=== PATIENT | male | born 1960 | race African-American/Black ===

== ENCOUNTER 2016-10-30 06:15 | Inpatient (IN) ==
--- NOTE | 2016-10-29 20:36 | Discharge Summary ---
<Bertha Byers - Last Filed: 10/29/16 20:29> Date of Encounter: 10/29/16 - Discharge Diagnosis (1) Arthritis of left hip Priority: Primary Status: Chronic (2) Hypertension Priority: Secondary Status: Chronic Qualifiers: Hypertension type: unspecified Qualified Code(s): I10 - Essential (primary ) hypertension (3) Hyperlipidemia Priority: Secondary Status: Chronic Qualifiers: Hyperlipidemia type: unspecified Qualified Code(s): E78.5 - Hyperlipidemia , unspecified (4) BMI 40.0-44.9, adult Priority: Secondary Status: Chronic - Discharge Medications Home Medications: Aspirin Enteric Coated [Aspirin EC] 325 mg PO QAM #21 tablet. 10/29/16 [Rx] OxyCODONE Immed Rel [Roxicodone 5 MG] 5 - 10 mg PO Q6HR PRN #40 tablet 10/29/16 [Rx] Simvastatin [Zocor] 20 mg PO HS 10/30/16 [History] Triamterene/HCTZ 37.5/25mg [Dyazide] 1 tab PO DAILY 10/30/16 [History] Allergies/Adverse Reactions: Allergies No Known Allergies Allergy (Unverified 10/25/16 14:43) Primary care physician: PCP NO - Patient Status Disposition: Home, Self-Care Condition: Good - Discharge Instructions Follow Up With: DADA,PCP [Primary Care Provider] - - Hospital Course Hospital course: Mr. Ruiz is a 56 year old male - Time Spent with Patient Total time spent providing and/or coordinating discharge services: - VTE Documentation of Mechanical Device: Venous foot pump, device <Cristino Chaudahry - Last Filed: 10/31/16 08:19> Date of Encounter: 10/31/16 Time of Encounter: 08:18 - Discharge Diagnosis (1) Arthritis of left hip Priority: Primary Status: Acute (2) Hypertension Priority: Secondary Status: Chronic Qualifiers: Hypertension type: unspecified Qualified Code(s): I10 - Essential (primary ) hypertension (3) Hyperlipidemia Priority: Secondary Status: Chronic Qualifiers: Hyperlipidemia type: unspecified Qualified Code(s): E78.5 - Hyperlipidemia , unspecified (4) BMI 40.0-44.9, adult Priority: Secondary Status: Chronic Primary care physician: PCP NO - Patient Status Overall status at discharge: patient is progressing back to baseline - Hospital Course Hospital course: Mr. Ruiz is a 56 year old male Status post total hip replacement The patient had an uneventful postoperative course. They received antibiotics and physical therapy and were discharged in stable condition. There will follow-up in the office in 2 weeks. Aspirin DVT prophylaxis - Time Spent with Patient Total time spent providing and/or coordinating discharge services:
[2016-10-30] MEDS ORDERED: CeFAZolin Pre 2,000 MG/100 ML 2,000 MG/100 ML BAG IVPB ONE (06:31)
--- NOTE | 2016-10-30 06:54 | History & Physical Report ---
Date of Encounter: 10/30/16 Time of Encounter: 06:54 24 Hour HP Update - Instructions Instructions: If the History and Physical is less than 30 days old and was completed prior to A.M. admission and or procedure and has NOT been updated on calendar day of procedure please complete this update prior to performing procedure. - Update Patient reports changes in Medical Condition: No Changes in examination, assessment, or condition: No Changes in Medication: No Preop tests/diagnostics Reviewed: Yes Surgery Remains Indicated: Yes Consent for Planned Operative Procedure(s) Verified: Yes - Pre-Operative Checklist Preoperative Checklist Indicated: No Prophylactic Antibiotic Ordered: Yes Is VTE Prophylaxis Indicated?: Yes
[2016-10-30] MEDS ORDERED: Lidocaine -MPF 4% 5 ML AMPUL ONE (06:58)
[2016-10-30] MEDS ORDERED: *HR* Propofol 200 MG/20 ML VIAL IVP ONE ×2 (07:00→07:56)
[2016-10-30] MEDS ORDERED: *HR* FentaNYL (PF) 100 MCG/2 ML VIAL ONE ×3 (07:00→09:40)
[2016-10-30] MEDS ORDERED: *HR* Midazolam HCl 2 MG/2 ML VIAL ONE (07:02)
[2016-10-30] MEDS ORDERED: Lidocaine -MPF 1% 2 ML VIAL ONE (07:06)
[2016-10-30] MEDS ORDERED: Dexamethasone 4 MG/ML VIAL ONE (07:08)
[2016-10-30] MEDS ORDERED: Lidocaine -MPF 2% 2 ML VIAL ONE (07:08)
[2016-10-30] MEDS ORDERED: Ondansetron 4 MG/2 ML VIAL ONE (07:08)
[2016-10-30] MEDS ORDERED: *HR* Succinylcholine 200 MG/10 ML VIAL IVP ONE (07:08)
[2016-10-30] MEDS ORDERED: *HR* Rocuronium Bromide 50 MG/5 ML VIAL ONE (07:08)
[2016-10-30] MEDS ORDERED: *HR* Phenylephrine 10 MG/ML VIAL ONE (07:08)
[2016-10-30] MEDS ORDERED: Acetaminophen IV 1,000 MG/100 ML INFUS..BTL IVPB ONE (07:09)
[2016-10-30] MEDS ORDERED: Famotidine 20 MG/2 ML VIAL IVP ONE (07:09)
[2016-10-30] MEDS ORDERED: EPHEDrine 50 MG/ML VIAL ONE (07:09)
[2016-10-30] MEDS ORDERED: Gabapentin 300 MG CAPSULE PO ONE (07:09)
--- NOTE | 2016-10-30 07:12 | Anesthesia Evaluation PreOp ---
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 10/29/16 [Rx] OxyCODONE Immed Rel [Roxicodone 5 MG] 5 - 10 mg PO Q6HR PRN #40 tablet 10/29/16 [Rx] Simvastatin [Zocor] 20 mg PO HS 10/30/16 [History] Triamterene/HCTZ 37.5/25mg [Dyazide] 1 tab PO DAILY 10/30/16 [History] Allergies No Known Allergies Allergy (Unverified 10/25/16 14:43) - Meds/Allergy Pre-op Review Medications Reviewed: Yes Allergies Reviewed: Yes Beta Blockers on Current Med List: No Anesthesia Results - Labs Laboratory Tests 10/25/16 10/25/16 14:55 14:55 Hgb 15.9 Hct 46.9 Plt Count 149 Sodium 140 Potassium 4.0 BUN 21 Creatinine 1.23 - Imaging EKG: report reviewed (SR) Anesthesia Exam O2 Sat Height 1.71 m Height 1.71 m Height 1.71 m Weight 127.913 kg Weight 127.913 kg Weight 127.913 kg O2 Sat by Pulse Oximetry 96 Vital Signs Temp Pulse Resp BP Pulse Ox 99.0 F 70 18 149/89 96 10/30/16 06:35 10/30/16 06:35 10/30/16 06:35 10/30/16 06:35 10/30/16 06:35 Height: 5'8 Weight: 282 lbs NPO (# of Hours): MN Pain Scale: 0 - HEENT Pupil (Motor): Pupils equal, EOMI Mallampati: III Teeth: Normal Oral Opening: Less than or equal to 3 - WAREHOUSE P[employer] LOC: Oriented [employer] Motor: Normal RUE, Normal LUE, Normal RLE, Normal LLE, Normal Face [employer] Sensory: Normal: RUE, LUE, RLE, LLE, Face - Cardiac Rhythm: Regular Murmur: None JVD: No Carotid Bruit: No - Pulmonary Breath Sounds: bilateral Clear Respiratory Effort: Symmetrical Anesthesia Assess/Plan ASA Score: 3 (MO HTN) Modified Osbaldo Scale for Level of Consciousness: Cooperative, oriented, and tranquil Anesthetic Plan: General Monitoring Plan: Standard Monitors Recovery Plan: PACU (Discussed GA, agrees to proceed)
[2016-10-30] MEDS ORDERED: *HR* Promethazine 25 MG/ML VIAL IVP PRN (07:36)
[2016-10-30] MEDS: Ringers Solution, Lactated 1,000 ML IVC SCH ×3 (07:50→11:20)
[2016-10-30] MEDS ORDERED: *HR* HYDROmorphone 2 MG/ML SYRINGE ONE (08:13)
[2016-10-30] MEDS ORDERED: CEFAZOLIN IVPB ONE (08:26)
[2016-10-30] MEDS ORDERED: D5 IVPB ONE (08:26)
[2016-10-30] MEDS ORDERED: WATER IVPB ONE (08:26)
[2016-10-30] MEDS ORDERED: Neostigmine Methylsulfate 3 MG/3 ML SYRINGE ONE (08:55)
--- NOTE | 2016-10-30 08:56 | Orthopedic Operative Note ---
Date of procedure: 10/30/16 Pre-op diagnosis: Left hip arthritis Post-op diagnosis: same Procedure: Procedure: Left Total Hip Replacment Estimated blood loss: 300 cc Hardware: Metal and polyethylene replacement. Biomet DM Cup: 58 G7 fin cup Femoral size 17 echo full profile lateralized stem Head: 0 head with Barbara Procedural Notes: Grade 4 arthritic changes femoral head acetabular socket. Operative procedure: The patient was brought to the operating room and placed on the operating room table. After general anesthesia was administered the patient was placed in the lateral decubitus position with the operative leg up. All pressure points were padded appropriately and the head was stabilized in the neutral position. The operative extremity was prepped and draped in the sterile surgical fashion patient received IV antibiotic prior to skin incision. A standard posterior approach is made to the operative hip, the incision was made through the skin and subcutaneous tissue hemostasis was obtained with Bovie cautery. Using careful sharp dissection the fascia was identified and incised exposing the external rotators. The external rotators were released off the greater trochanter and tagged with #2 FiberWire suture. The capsule was T'd open and the hip was brought into internal rotation. Patient noted to have grade 4 arthritic changes femoral head. The femoral neck cut was made at the appropriate level. An anterior capsulotomy was performed for the anterior retractor. Soft tissues removed from the acetabulum. Patient noted to have grade 4 arthritic changes acetabulum. Acetabulum was first reamed medially, and then reamed in 15 degrees of anteversion and 45 degrees off the horizontal. It was reamed up to the appropriate size 58 The appropriate-sized 58 acetabular cup was impacted in place in 15 degrees of anteversion and 45 degrees off the horizontal. This had good fit and fixation. The hip was brought back in to internal rotation and prepared with the air box tester followed by the canal finder followed by broaching process in 20 degrees anteversion. It was broached up to the appropriate size 17 The femoral implant was impacted in place in 20 degrees of anteversion. Trial reduction found the hip to be stable with 0 head and Barbara. The trials were removed and the real implants were impacted in place. The hip was reduced, patient had apparent equal leg lengths. The hip had excellent stability with forward flexion to 90 degrees adduction of 30 degrees and internal rotation of 60 degrees. The hip had no shuck. The hips after 2 minutes with a Betadine saline solution. It was irrigated out with 2 L of pulse irrigation. The PA close the hip. Fascia was closed with a running #2 PDS suture. The deep tissue was irrigated and closed deep with #1 PDS suture superficially with 0 PDS suture and skin was closed with Dermabond and skin alva. The patient was placed in a sterile dressing and abduction pillow. The patient was extubated and transferred to the recovery room in stable condition. Anesthesia: ROMEL Surgeon: Cristino Chaudhary Fish Checker: Bertha Byers Condition: stable Disposition: PACU
[2016-10-30] MEDS: *HR* HYDROmorphone (PF) 1 MG/ML SYRINGE IVP PRN ×5 (09:52→10:22)
[2016-10-30] MEDS ORDERED: Ketorolac 30 MG/ML VIAL IVP ONE (10:10)
[2016-10-30 10:36] LABS: Hematocrit 40.7 % (37.5-50.1)
--- NOTE | 2016-10-30 10:40 | Anesthesia Evaluation Post Op ---
Date of Encounter: 10/30/16 Time of Encounter: 10:39 - Vital Signs Vital Signs: vss - Lungs Lungs: Clear Ascult./Percussion - Airway Airway: Obstructed - Cardiovascular Baseline Rhythm - Mental Status Mental Status: Asleep with brisk response to light stimulation - Pain Pain Scale used: [place] (Faces) (no distress noted) - Nausea Vomiting Nausea Vomiting: Not Present - Hydration Hydration: Ice chips - Discharge PostOp Status: Transfer Patient to floor
[2016-10-30 10:41] LABS: Hemoglobin 13.6 g/dL (12.9-16.9)
[2016-10-30] MEDS ORDERED: Ondansetron 4 MG/2 ML VIAL IVP PRN (10:47)
[2016-10-30] MEDS ORDERED: MOM Conc 10 ML UD.LIQ PO PRN (10:47)
[2016-10-30] MEDS ORDERED: Naloxone 0.4 MG/ML INJ IVP PRN (10:47)
[2016-10-30] MEDS ORDERED: *HR* OxyCODONE Immed Rel 5 MG TABLET PO PRN (10:47)
[2016-10-30] MEDS ORDERED: ceFAZolin 3,000 MG in D5% in Water 100 ML IVPB SCH (10:47)
[2016-10-30] MEDS ORDERED: Sennosides 8.6 MG TABLET PO PRN (10:47)
[2016-10-30] MEDS ORDERED: Temazepam 15 MG CAPSULE PO PRN (10:47)
[2016-10-30] MEDS: Ascorbic Acid 500 MG TABLET PO SCH ×2 (11:15→16:04)
[2016-10-30] MEDS: Multivit/Ca/Min/Fe/FA 1 TAB TABLET PO SCH (11:15)
[2016-10-30] MEDS: *HR* OxyCODONE Immed Rel 5 MG TABLET PO PRN ×3 (11:19→23:56)
[2016-10-30] MEDS: ceFAZolin 3,000 MG in D5% in Water 100 ML IVPB SCH ×2 (15:18→23:59)
[2016-10-30] MEDS: *HR* Enoxaparin 30 MG/0.3 ML SYRINGE SQ SCH (17:35)
[2016-10-30] MEDS ORDERED: *HR* Enoxaparin 30 MG/0.3 ML SYRINGE SQ SCH (18:00)
[2016-10-31] MEDS: *HR* HYDROmorphone (PF) 1 MG/ML SYRINGE IVP PRN ×2 (02:48→05:24)
[2016-10-31] MEDS: Ringers Solution, Lactated 1,000 ML IVC SCH (05:20)
[2016-10-31] MEDS: *HR* Enoxaparin 30 MG/0.3 ML SYRINGE SQ SCH (05:20)
[2016-10-31 05:58] LABS: Hematocrit 33.6 % (37.5-50.1)
[2016-10-31 06:05] LABS: Hemoglobin 11.4 g/dL (12.9-16.9)
[2016-10-31 06:47] LABS: BUN/Creatinine Ratio 14 (6-26); Blood Urea Nitrogen 15 mg/dL (8-26); Calcium 8.1 mg/dL (8.6-10.8); Carbon Dioxide 26 mEq/L (19-29); Chloride 99 mEq/L (98-109); Glucose 150 mg/dL (70-99); Osmolality,Calculated 278 (280-300); Potassium 3.5 mEq/L (3.5-4.5); Sodium 132 mEq/L (136-145); eGFR For African Americans > 60 (> 60); eGFR For Non-African Americans > 60 (> 60)
--- NOTE | 2016-10-31 08:20 | Orthopedics Progress Note ---
Date of Encounter: 10/31/16 Time of Encounter: 08:19 - Assessment and Plan (1) Arthritis of left hip Current Visit: Yes Status: Acute (2) Hypertension Current Visit: Yes Status: Chronic Qualifiers: Hypertension type: unspecified Qualified Code(s): I10 - Essential (primary ) hypertension (3) Hyperlipidemia Current Visit: Yes Status: Chronic Qualifiers: Hyperlipidemia type: unspecified Qualified Code(s): E78.5 - Hyperlipidemia , unspecified (4) BMI 40.0-44.9, adult Current Visit: Yes Status: Chronic Subjective Interval history: Patient was seen this morning doing well without complaints. Afebrile vital signs stable. Operative extremity: Neurovascularly intact Dressing clean dry and intact Calves nontender Assessment and plan: Continue with postoperative care Hematocrit 33 stable for discharge Objective Vital signs: Vital Signs Temp Pulse Resp BP Pulse Ox 10/31/16 07:16 98.2 F 84 16 120/75 94 10/31/16 00:32 99.4 F 89 18 136/83 94 10/30/16 21:35 99.6 F 73 16 116/69 98 10/30/16 14:23 97.8 F 72 16 136/91 96 10/30/16 13:36 98.7 F 75 16 112/74 96 10/30/16 12:05 97.9 F 70 15 109/73 94 10/30/16 11:26 97.6 F 67 14 125/78 96 10/30/16 10:55 98.0 F 73 14 120/72 96 10/30/16 10:45 99.1 F 58 14 124/70 98 10/30/16 10:35 99.1 F 60 15 129/73 96 10/30/16 10:25 77 18 139/81 93 10/30/16 10:15 99.1 F 89 22 144/96 99 10/30/16 10:05 78 16 119/103 98 10/30/16 09:55 76 16 119/84 97 10/30/16 09:45 99 F 78 20 134/78 96 Intake and Output 10/30/16 10/31/16 10/31/16 23:59 07:59 15:59 Intake Total 340 / 340 1000 / 1000 Balance 340 / 340 1000 / 1000 Intake: IV Fluids 100 / 100 1000 / 1000 Lactated Ringers 1,000 ML 1000 / 1000 @ 75 mls/hr IVC .[id number] MAXIMO Rx#:[id number] Ancef 3,000 MG In 100 / 100 Dextrose 5% 100 ML @ 200 mls/hr IVPB Q8HR MAXIMO Rx#: [id number] Oral 240 / 240 Other: Meal Dinner Percent of Meal Consumed 100% # Voids 1 - Labs CBC & BMP: 10/31/16 04:40 10/31/16 04:40 Labs: Abnormal lab results Hgb 11.4 g/dL (12.9-16.9) L D 10/31/16 04:40 Hct 33.6 % (37.5-50.1) L 10/31/16 04:40 Sodium 132 mEq/L (136-145) L 10/31/16 04:40 Glucose 150 mg/dL (70-99) H 10/31/16 04:40 Calculated Osmolality 278 (280-300) L 10/31/16 04:40 Calcium 8.1 mg/dL (8.6-10.8) L 10/31/16 04:40 - VTE Documentation of Mechanical Device: Venous foot pump, device Consult Discharge Plan - Plan Referrals: NO,PCP [Primary Care Provider] -
[2016-10-31] MEDS: Multivit/Ca/Min/Fe/FA 1 TAB TABLET PO SCH (08:38)
[2016-10-31] MEDS: Ascorbic Acid 500 MG TABLET PO SCH (08:38)
[2016-10-31] MEDS: *HR* OxyCODONE Immed Rel 5 MG TABLET PO PRN ×2 (08:38→12:25)
[2016-10-31 11:15] VITALS: BP 120/77
== END 2016-10-31 12:39 | disposition home or self-care (01) | DRG 470 ==
LOC: SAMDAY 06:15 → 3NENU 10:44
PROVIDERS: ADMIT Orthopaedic Surgery; ATTEND Orthopaedic Surgery